=== PATIENT | male | born 2000 ===

== ENCOUNTER → 2019-10-11 | Outpatient (CLI) | payer BC ==
[2019-10-15 09:08] LABS: CHLAMYDIA TRACHOMATIS, NAA Negative (Negative); NEISSERIA GONORRHOEAE, NAA Negative (Negative)
== END | disposition home or self-care (01) ==
LOC: LAB SHORT 16:44 → LAB EV 16:44
PROVIDERS: Physician Assistant
DX: R36.1 Hematospermia (principal)
CPT/HCPCS: 87070; 87147; 87205; 87491; 87591